=== PATIENT | male | born 2000 | race Two or more races ===

== ENCOUNTER 2024-08-18 18:06 | Emergency (ER) | payer MEDICAID, SELFPAY ==
[2024-08-18 18:47] VITALS: BP 156/79; PULSE 82; RESP 16; TEMP 36.9; O2SAT 100; BMI 17.4
--- NOTE | 2024-08-18 19:01 | PD.EDRME ---
Rapid Medical Screening Exam FOR[facility], LATER [facility] Arrival date/time: 08/18/24 18:06 24M with history of marijuana use presents to ED with 2 days of N/V, burning epigastric pain, and some non-bloody diarrhea. Chief Complaint: Nausea/Vomiting/Diarrhea Vital signs: Vital Signs Temperature 98.4 F 08/18/24 18:47 Pulse Rate 82 08/18/24 18:47 Respiratory Rate 16 08/18/24 18:47 Blood Pressure 156/79 H 08/18/24 18:47 Pulse Oximetry (%) 100 08/18/24 18:47 Oxygen Delivery Method Room Air 08/18/24 18:47
[2024-08-18] MEDS: ONDANSETRON ODT 4 MG TABRAP PO (19:20)
[2024-08-18] MEDS: DICYCLOMINE 10 MG CAPSULE PO (19:20)
[2024-08-18] MEDS: HYDROcodone/APAP 5/325 TABLET 1 TAB PO (19:20)
[2024-08-18 19:48] LABS: Collection Type, Urine Clean Catch
[2024-08-18 19:48] LABS: Basophils % (Auto) 0 % (0-2.5); Eosinophils % (Auto) 0 % (0-10); Hematocrit 44.2 % (41.0-53.0); Hemoglobin 15.9 g/dL (13.5-16.0); Immature Granulocytes % (Auto) 0 % (0-0); Immature Granulocytes Auto 0.02 Thou/mm3 (0.00-0.00); Lymphocytes # (Auto) 1.4 Thou/mm3 (1.0-4.8); Lymphocytes % (Auto) 14 % (10-50); Mean Corpuscular Hemoglobin 29.9 pg (25.0-35.0); Mean Corpuscular Volume 83 fL (80-100); Monocytes % (Auto) 10 % (0-12); Neutrophils # (Auto) 7.6 Thou/mm3 (1.8-7.7); Neutrophils % (Auto) 76 % (37-80); Nucleated Red Blood Cell % 0 /100 WBC (0); Platelet Count 210 Thou/mm3 (140-440); RDW Standard Deviation 38.2 fL (35.1-43.9); Red Blood Count 5.32 Miln/mm3 (4.50-5.90); White Blood Count 10.1 Thou/mm3 (3.8-10.6)
[2024-08-18 20:08] LABS: Alanine Aminotransferase 19 U/L (10-49); Albumin, Serum 5.3 gm/dL (3.5-5.0); Albumin/Globulin Ratio 1.7 (1.2-2.2); Alcohol, Blood Medical < 3.0 mg/dL (0-10.0); Alkaline Phosphatase 57 U/L (46-116); Anion Gap 12 (7-16); Aspartate Amino Transferase 26 U/L (0-34); BUN/Creatinine Ratio 12 Ratio (12-20); Bilirubin,Total 1.1 mg/dL (0.3-1.2); Blood Urea Nitrogen 14 mg/dL (9-23); Calcium 10.5 mg/dL (8.3-10.6); Calcium (Corrected) 10.5 mg/dL (8.5-10.1); Carbon Dioxide 24.9 mMol/L (20.0-31.0); Chloride 101 mMol/L (98-107); Creatinine (Component) 1.2 mg/dL (0.6-1.3); Estimated Creatinine Clearance 75.4 mL/min (>60); Globulin 3.2 gm/dL (2.3-3.5); Glucose 127 mg/dL (74-106); Lipase 27 U/L (12-53); Osmolality,Calculated 278 (275-295); Potassium 3.4 mMol/L (3.4-5.1); Sodium 138 mMol/L (136-145); Total Protein 8.5 gm/dL (5.7-8.2); eGFR > 60 See Note
[2024-08-18 20:10] LABS: Bilirubin,Urine Negative (Negative); Blood,Urine Negative (Negative); Clarity,Urine Clear (Clear/Hazy); Color,Urine Lt-Yellow (Lt Yel-Yel); Culture Indicated,Urine Not Indicated; Glucose, Urine Negative (Negative); Ketones,Urine 2+ (Negative); Leukocyte Esterase,Urine Negative (Negative); Nitrite,Urine Negative (Negative); PH,Urine 8.5 (5.0-7.0); Protein,Urine 1+ (Neg - Trace); RBC,Urine 2 /hpf (0-3); Specific Gravity,Urine 1.026 (1.001-1.035); Squamous Epithelial Cell,Urine < 1 /hpf (0-5); Urobilinogen,Urine Negative mg/dL (0.0-1.0); WBC,Urine 1 /hpf (0-5)
[2024-08-18 20:18] LABS: Amphetamine/Methamp Scrn,U Negative (Negative); Barbiturate Screen,Urine Negative (Negative); Benzodiazepines Screen,Urine Negative (Negative); Benzoylecgonine Screen, Ur Negative (Negative); Fentanyl Screen,Urine Negative (Negative); Opiate Screen,Urine Negative (Negative); THC Screen,Urine Positive (Negative)
--- NOTE | 2024-08-18 22:32 | EDNOTE_ITS ---
<Statement entered by Kassidy Garcia MD - 08/18/24 23:25> As co-signing physician, I was present and available for consult prn. I concur with the plan and care as documented by the midlevel provider. Nausea/Vomit./Diarrhea-RME/HPI General Chief complaint: Nausea/Vomiting/Diarrhea Stated complaint: Vomiting, abd. pain Time Seen by Provider: 08/18/24 20:40 Arrival date/time: 08/18/24 18:06 RME / HPI RME / HPI Narrative: 24-year-old male patient was brought in by family for evaluation regarding epigastric pain. Patient's been having epigastric pain, nausea, vomiting, and diarrhea. Patient cannot take anything down. Pain ongoing for last 2 days. Patient denies any fever. Denies any other complaints. Patient admits to smoking marijuana on a daily basis. Related Data Previous Rx's ?Medication ?Instructions ?Recorded meloxicam 7.5 mg tablet 7.5 mg PO QDAY #10 tabs 07/23 07/14 metoclopramide HCl 10 mg tablet 10 mg PO Q6H PRN nause a and 08/18/24 (Reglan) vomiting #20 tabs pantoprazole 40 mg tablet,delayed 40 mg PO QDAY #20 ta bs 08/18/24 release (Protonix) Allergies Allergy/AdvReac Type Severity Reaction Status Date / Time No Known Allergies Allergy Verified 08/18/24 18:09 Review of Systems Review of Systems Narrative Review of Systems: Review of system reviewed and within normal limits except mentioned in HPI ED Exam Narrative Physical exam: VITAL SIGNS: Reviewed. GENERAL APPEARANCE: Alert and interactive, follows commands, no acute distress, HEAD AND FACE: Non-traumatic. ENT: PERRL, pink conjunctivitis, eyelid no trauma, Mucous membrane dry NECK: Supple, nontender, no nuchal rigidity. CHEST: No tenderness, no crepitus, no paradoxical movement, no retractions. LUNGS: Clear, well ventilated, symmetric, no rales, no wheezing, no ronchi, no stridor, good breath sounds bilaterally. HEART: Regular rate, regular rhythm, no murmur, no gallops. ABDOMEN: Soft, positive bowel sounds, nondistended, no guarding, nontender, no rebound, no masses, RECTAL: Deferred. GENITAL: Deferred. NEUROLOGICAL: Gross motor function intact sensory function intact, Appropriate for age. MUSCULOSKELETAL: low back nontender, full range of motion. EXTREMITIES: Nontender, full range of motion. SKIN: Color pink, dry, no rash, no lacerations, no abrasions, no contusions. LYMPHATICS: Deferred. Course Quality Measures none Orders Category Date Time Status Alcohol, Blood Medical Stat Lab 08/18/24 19:35 Completed CBC Stat Lab 08/18/24 19:35 Completed CMP [Comprehensive Metabolic Panel] Stat Lab 08/18/24 19:35 Completed Drug Screen,Urine Stat Lab 08/18/24 19:22 Completed Lipase Stat Lab 08/18/24 19:35 Completed Urinalysis, C/S if Indicated Stat Lab 08/18/24 19:22 Completed Dicyclomine [Bentyl] Med 08/18/24 19:00 Discontinued 10 mg PO X1 ONE HYDROcodone*/APAP 5/325 [[place] 5/325] Med 08/18/24 19:00 Discontinued 1 tab PO X1 ONE Metoclopramide Inj [Reglan Inj] Med 08/18/24 22:31 Discontinued 10 mg IVP X1 ONE Ondansetron Odt [Zofran Odt] Med 08/18/24 19:00 Discontinued 4 mg PO X1 ONE Ringers Lactated 1000 ml [Lactated Ringers] 1,000 ml Med 08/18/24 22:31 Active IV 999 mls/hr Ringers Lactated 1000 ml [Lactated Ringers] 1,000 ml Med 08/18/24 22:31 Active IV 999 mls/hr Vital Signs Vital signs: Vital Signs Temperature 98.4 F 08/18/24 18:47 Pulse Rate 82 08/18/24 18:47 Respiratory Rate 16 08/18/24 18:47 Blood Pressure 156/79 H 08/18/24 18:47 Pulse Oximetry (%) 100 08/18/24 18:47 Oxygen Delivery Method Room Air 08/18/24 18:47 Nausea/Vomiting/Diarrhea MDM Narrative MDM Narrative:: 24-year-old male patient was brought in by family for evaluation regarding epigastric pain. Patient's been having epigastric pain, nausea, vomiting, and diarrhea. Patient cannot take anything down. Pain ongoing for last 2 days. Patient denies any fever. Denies any other complaints. Patient admits to smoking marijuana on a daily basis. Patient's workup all came back unremarkable. Except positive for marijuana. Patient was advised to stop smoking marijuana which could be the reason for his vomiting. Patient received 2 L of IV fluids and Reglan with significant improvement of symptoms Patient is tolerating p.o. fluids. Patient data External records reviewed:: None Clinical information provided by:: patient Social determinants that could affect healthcare access:: substance use Patient has the following chronic illnesses:: None How is presenting disease/condition affected by chronic disease/condition?: exacerbated by Evaluation data The following diagnostics were reviewed and interpreted by me:: lab results Lab and/or radiology exams considered but not ordered:: None Interpretation Summary: See results in MDM Medications / Prescriptions Medications / Prescriptions considered but not ordered:: None Medication administrations:: Medication Administration History Lactated Ringer's (Lactated Ringers) 1,000 mls @ 999 mls/hr IV .Q1H1M ONE Stop: 08/18/24 23:31 Lactated Ringer's (Lactated Ringers) 1,000 mls @ 999 mls/hr IV .Q1H1M ONE Stop: 08/18/24 23:31 Discontinued Medications Hydrocodone Bitart/Acetaminophen (Hydrocodone/Apap 5/325 Tablet) 1 tab PO X1 ONE Stop: 08/18/24 19:01 Last Admin: 08/18/24 19:20 Dose: 1 tab Documented By: MAXX Dicyclomine HCl (Dicyclomine 10 Mg Capsule) 10 mg PO X1 ONE Stop: 08/18/24 19:01 Last Admin: 08/18/24 19:20 Dose: 10 mg Documented By: MAXX Metoclopramide HCl (Metoclopramide Inj 5 Mg/Ml Vial 2 Ml) 10 mg IVP X1 ONE; Protocol Stop: 08/18/24 22:32 Ondansetron HCl (Ondansetron Odt 4 Mg Tabrap) 4 mg PO X1 ONE; Protocol Stop: 08/18/24 19:01 Last Admin: 08/18/24 19:20 Dose: 4 mg Documented By: MAXX IV fluids, Bentyl Zofran [place] Reglan with significant improvement of symptoms Consultations Consultation(s) initiated? (list below): No Diagnosis Nausea Differential Diagnosis: food poisoning and gastroenteritis Most likely diagnosis given after review of the tests above:: Cannabinoid hyperemesis syndrome Admission Indicated Admission indicated?: not indicated Admission Request Was there a request for admission?: No Disposition Plan Disposition Plan: Discharge Discharge Attestation Discharge Attestation: The patient and all family members were given an opportunity to ask questions and understood the discharge instructions. Discharge instructions specifically effects, indications for sooner follow up or return to the emergency department, and the expected course of current diagnosis. Patient condition: Stable Discharge Plan Plan Patient Disposition: HOME (Self Care) Discharge Disposition comment: Stable Prescriptions/Referrals Prescriptions/Med Rec: New metoclopramide HCl [Reglan] 10 mg tablet 10 mg PO Q6H PRN (Reason: nausea and vomiting) Qty: 20 0RF pantoprazole [Protonix] 40 mg tablet,delayed release (DR/EC) 40 mg PO QDAY Qty: 20 0RF No Action meloxicam 7.5 mg tablet 7.5 mg PO QDAY Qty: 10 0RF Referrals: No Primary/Family,Physician [Primary Care Provider] - In 1 week Problem List Clinical Impression: Cannabinoid hyperemesis syndrome Patient/Caregiver Discharge Instructions Discharge Activity: activity as tolerated Education Materials: ED Vomiting and Diarrhea ... Additional Instructions: Thank you for the opportunity for serving you today. You are stable for discharged . You are advised to: Follow-up with your PCP in 1 to 2 days Return to ED for worsening of symptoms Increase oral fluids Take medication as prescribed Please stop abusing a marijuana because your symptoms is secondary to marijuana Print Language: Azeri Stand Alone Forms: Gabriela Award Info., Patient Portal Info Letter PA/CRISTIANA Supervising Physician PRAVEENA/CRISTIANA Supervising Physician: MD Salima
[2024-08-18] MEDS: RINGERS LACTATED 1000 ML 1,000 ML 999 ML IV ×2 (23:31)
[2024-08-18 23:39] VITALS: BP 108/68; PULSE 65; RESP 18; TEMP 36.6; O2SAT 100
[2024-08-19] MEDS: ONDANSETRON INJ 2 MG/ML INJ 2 ML 4 MG IVP (00:44)
[2024-08-19 01:20] VITALS: BP 113/73; PULSE 69; RESP 17; TEMP 36.8; O2SAT 99
== END 2024-08-19 01:29 | disposition home or self-care (01) ==
PROVIDERS: Physician Assistant; Emergency Provider Emergency Medicine
DX: R11.2 Nausea with vomiting, unspecified (principal); F12.90 Cannabis use, unspecified, uncomplicated
CPT/HCPCS: 36415; 80053; 80307; 80320; 81001; 83690; 85025; 96361; 96374; 99284; J2405; J7120; Q0162; A9270; G0480